=== PATIENT | male | born 1965 | race American Indian/Alaskan Native ===

== ENCOUNTER 2018-09-13 07:47 | Day surgery (SDC) | payer OTHER ==
[2018-09-13 08:06] VITALS: BMI 29.0
[2018-09-13 08:16] VITALS: O2SAT 100
[2018-09-13] MEDS ORDERED: Lactated Ringer's 500 ML IV SCH (09:45)
[2018-09-13] MEDS ORDERED: Propofol 10 mg/ml Inj (20 ML) ONE (10:00)
[2018-09-13 10:29] VITALS: TEMP 98
[2018-09-13 11:02] VITALS: RESP 12
[2018-09-13 11:56] VITALS: BP 112/78; PULSE 55
== END 2018-09-13 11:25 | disposition home or self-care (01) ==
LOC: C.ENDO 07:47
PROVIDERS: ATTEND Internal Medicine Gastroenterology
DX: D12.4 Benign neoplasm of descending colon (principal); Z12.11 Encounter for screening for malignant neoplasm of colon; K63.5 Polyp of colon; K64.1 Second degree hemorrhoids
CPT/HCPCS: 45380; 88305; J2704; J3010; J7120